=== PATIENT | female | born 1985 | race African-American/Black ===

== ENCOUNTER 2019-02-16 13:56 | Inpatient (IN) ==
[2019-02-16] MEDS ORDERED: PHENOBARBITAL IV PRN (15:53)
[2019-02-16] MEDS ORDERED: SENOKOT PO PRN (15:53)
[2019-02-16] MEDS ORDERED: TUBERSOL ID ONE (15:53)
[2019-02-16] MEDS ORDERED: NICOTINE GUM BUCCAL PRN (15:53)
[2019-02-16] MEDS ORDERED: MAALOX PLUS LIQUID PO PRN (15:53)
[2019-02-16] MEDS ORDERED: D5W 1,000 ML IV PRN (15:53)
[2019-02-16] MEDS ORDERED: IMODIUM PO PRN ×2 (15:53)
[2019-02-16] MEDS ORDERED: DESYREL PO PRN (15:53)
[2019-02-16] MEDS ORDERED: ZOFRAN IM PRN (15:53)
[2019-02-16] MEDS ORDERED: TYLENOL PO PRN (15:53)
[2019-02-16] MEDS ORDERED: ZOFRAN IV PRN (15:53)
[2019-02-16] MEDS ORDERED: DULCOLAX PR PRN (15:53)
[2019-02-16] MEDS ORDERED: SUBOXONE 2 MG/0.5 MG FILM SL SCH (16:00)
[2019-02-16] MEDS ORDERED: BENTYL PO PRN (16:00)
[2019-02-16] MEDS ORDERED: ATARAX PO PRN (16:00)
[2019-02-16] MEDS: NICODERM PATCH TD PRN (17:00)
[2019-02-16 17:19] LABS: AMYLASE 75 U/L (20-200); LIPASE 23 U/L (13-60)
[2019-02-16 19:29] LABS: URINE SOURCE CLEAN CATCH
[2019-02-16] MEDS: VALTREX PO SCH (20:34)
[2019-02-16] MEDS: LIBRIUM PO PRN (20:34)
[2019-02-16 20:59] LABS: BILIRUBIN URINE NEGATIVE (NEGATIVE); BLOOD URINE NEGATIVE (NEGATIVE); GLUCOSE URINE NEGATIVE (NEGATIVE); KETONE URINE NEGATIVE (NEGATIVE); LEUKOCYTES URINE TRACE (NEGATIVE); NITRITE URINE NEGATIVE (NEGATIVE); PROTEIN URINE NEGATIVE (NEGATIVE); UROBILINOGEN URINE NORMAL
[2019-02-16 21:00] LABS: CLARITY CLEAR (CLEAR); COLOR YELLOW
[2019-02-16 21:08] LABS: URINE BACTERIA 1+ /HFP; URINE EPITHELIAL CELLS <10 /HPF (<10); URINE WBC <10 /HPF (<10); URINE YEAST NONE SEEN /HPF
[2019-02-16 21:09] LABS: URINE CAST NONE SEEN /LPF; URINE CRYSTAL NONE SEEN /HPF
[2019-02-16 21:37] LABS: UR BENZODIAZEPIN QUAL PRESUMPTIVE POSITIVE (NONE DETECT); UR CANNABINOIDS QUAL PRESUMPTIVE POSITIVE (NONE DETECT); UR OXYCODONE QUAL PRESUMPTIVE POSITIVE (NONE DETECT)
[2019-02-16 21:38] LABS: UR AMPHETAMINES QUAL NONE DETECTED (NONE DETECT); UR BARBITUATES QUAL NONE DETECTED (NONE DETECT); UR COCAINE QUAL NONE DETECTED (NONE DETECT); UR METHADONE QUAL NONE DETECTED (NONE DETECT); UR METHAMPHETAMINE QUAL NONE DETECTED (NONE DETECT); UR OPIATES QUAL NONE DETECTED (NONE DETECT); UR PCP QUAL NONE DETECTED (NONE DETECT); UR PROPOXYPHENE QUAL NONE DETECTED (NONE DETECT); UR TCA QUAL NONE DETECTED (NONE DETECT)
[2019-02-16] MEDS: ATARAX PO PRN (22:30)
[2019-02-16] MEDS: SEROQUEL PO PRN (22:32)
[2019-02-17] MEDS: PROTONIX PO SCH ×2 (05:50→07:26)
[2019-02-17] MEDS: FOLIC ACID PO SCH (08:01)
[2019-02-17] MEDS: VITAMIN B-1 PO SCH (08:01)
[2019-02-17] MEDS: ROBAXIN PO PRN ×3 (08:01→23:43)
[2019-02-17] MEDS: THERA M PLUS PO SCH (08:01)
[2019-02-17] MEDS: VALTREX PO SCH ×2 (08:02→20:25)
[2019-02-17] MEDS: LIBRIUM PO SCH ×3 (08:29→20:26)
[2019-02-17] MEDS: MOTRIN PO PRN ×2 (14:42→22:25)
[2019-02-17] MEDS: ATARAX PO PRN ×2 (14:42→20:32)
--- NOTE | 2019-02-17 18:34 | PROGRESS NOTE ---
DATE: 02/17/2019 SUBJECTIVE: Patient notes is feeling a lot better. States that she does not want to be on Suboxone. She wants to go home off of everything. In fact does not even want to take Suboxone while she is in the hospital. PHYSICAL: Vital Signs: Reviewed, temperature 98 degrees, pulse 72, respiratory 18, BP 118/55. General: Patient is in no current respiratory distress, pleasant to talk with. HEENT: Normocephalic. Neck: Supple. CV: Regular rate. Chest: Clear. Abdomen: Soft. Extremities: Moves all extremities. ASSESSMENT: 1. Nausea, vomiting. 2. Abdominal pain. 3. Myalgias. 4. Paresthesias. 5. Paroxysmal sweating. 6. Opiate abuse withdrawal and stabilization due to [id number] [*]. PLAN: We will continue patient in hospital, will stop her Suboxone, switch to Librium and will continue to follow. Will continue counseling, further orders as needed. cc: Mariano Gonzalez MD
[2019-02-17] MEDS: NICODERM PATCH TD PRN (20:32)
[2019-02-17] MEDS: SEROQUEL PO PRN (22:23)
--- NOTE | 2019-02-17 22:31 | HISTORY AND PHYSICAL ---
CHIEF COMPLAINT: Nausea and vomiting. HISTORY OF PRESENT ILLNESS: The patient is a 33-year-old female who presented to [facility] secondary to nausea, vomiting, abdominal pain and myalgias. States that she had been clean for quite some time. She does have a known history of opiate use and abuse. Her cousin talked her into trying Tianaas that are [id number] and since then she has been abusing taking several pills a day at a couple 100 dollars a day. SOCIAL HISTORY: Patient is single. She is unemployed. Lives at home in [place]. PAST MEDICAL HISTORY: History of seizures, history of polysubstance use and abuse. MEDICATIONS: Valtrex 500 twice daily. ALLERGIES: No known drug allergies. REVIEW OF SYSTEMS: CINA score is elevated secondary to nausea, vomiting, abdominal pain, myalgias. Denies any fevers, denies cough, congestion or other upper respiratory type symptoms. Denies any dysuria, frequency, or urgency. Denies hesitancy, polyuria or polydipsia. SUBSTANCE ABUSE HISTORY: The patient has a long history of substance abuse. She was treated in 2010 at [facility] for 2 weeks, treated in 2014 at [facility] where she stayed for 8 months and weaned off. She had been sober for the past 2 years. Started marijuana at 12, currently smokes 3 to 4 times a week. Started depressants at age 23. She is currently up to 10 mg a day. Started opiates at age 17. Has a long history of use and abuse. She had been sober for 8 months ago until she started Tianaa, currently taking 150 mg of Tianaa a day. Started using OxyContin at up to 150 mg a day to get off of Tianaa. Started nicotine, currently smokes pack a day. FAMILY HISTORY: Noncontributory. PHYSICAL EXAMINATION: VITAL SIGNS: Reviewed and stable. She is awake, alert. She is in no current respiratory distress. Pleasant to talk with. HEENT: Normocephalic, atraumatic. PERRL. NECK: Supple. No JVD. CARDIOVASCULAR: Regular rate. No murmurs. CHEST: Clear, nonlabored. ABDOMEN: Soft, nondistended. EXTREMITIES: Moves all extremities. NEUROLOGIC: No focal changes. SKIN: Warm, dry. No rash. ASSESSMENT: 1. Nausea, vomiting, abdominal pain. 2. Myalgias. 3. Paresthesias. 4. Paroxysmal sweating. 5. Opiate abuse, withdrawal and admit for stabilization. 6. Chronic tobacco abuse. 7. Benzodiazepine abuse. 8. Bipolar depression. PLAN: We will continue patient in the hospital. Continue counseling. We will place her on Librium and possibly Suboxone to help wean off of her current medications. Further orders as needed. cc: Mariano Gonzalez MD
[2019-02-17] MEDS: SINEMET 25/100 PO PRN (23:57)
[2019-02-18] MEDS: LIBRIUM PO SCH ×5 (01:35→21:04)
[2019-02-18] MEDS: PROTONIX PO SCH (06:16)
[2019-02-18] MEDS: ATARAX PO PRN ×3 (06:21→21:13)
[2019-02-18] MEDS: VALTREX PO SCH ×2 (07:59→21:05)
[2019-02-18] MEDS: VITAMIN B-1 PO SCH (07:59)
[2019-02-18] MEDS: FOLIC ACID PO SCH (07:59)
[2019-02-18] MEDS: THERA M PLUS PO SCH (07:59)
[2019-02-18] MEDS: ZOFRAN ODT PO PRN ×2 (13:25→18:14)
[2019-02-18] MEDS: SINEMET 25/100 PO PRN ×2 (13:25→21:04)
[2019-02-18] MEDS: NICODERM PATCH TD PRN (14:57)
[2019-02-18] MEDS: ROBAXIN PO PRN (21:04)
[2019-02-18] MEDS: MOTRIN PO PRN (21:04)
[2019-02-18] MEDS: SEROQUEL PO PRN (21:04)
[2019-02-19] MEDS: LIBRIUM PO PRN (01:03)
[2019-02-19] MEDS: LIBRIUM PO SCH ×3 (02:23→07:48)
[2019-02-19] MEDS: ATARAX PO PRN ×2 (02:46→09:02)
[2019-02-19] MEDS: PROTONIX PO SCH (06:16)
[2019-02-19] MEDS: ROBAXIN PO PRN (07:49)
[2019-02-19] MEDS: FOLIC ACID PO SCH (08:02)
[2019-02-19] MEDS: VALTREX PO SCH (08:02)
[2019-02-19] MEDS: VITAMIN B-1 PO SCH (08:02)
[2019-02-19] MEDS: THERA M PLUS PO SCH (08:02)
--- NOTE | 2019-02-19 08:38 | PROGRESS NOTE ---
DATE: 02/18/2019 SUBJECTIVE: The patient notes that she is feeling tremendously better. Her myalgias have improved well. PHYSICAL EXAMINATION: Vital Signs: Reviewed. Temperature 98 degrees, pulse 73, respiratory 20, BP 133/68. General: The patient is awake, alert, currently in no distress. HEENT: Normocephalic, atraumatic. KAYLA. Neck: Supple. No JVD. CARDIOVASCULAR: Regular rate. Chest: Clear. Abdomen: Soft. Extremities: Moves all extremities. Neurologic: No changes. ASSESSMENT: 1. Nausea. 2. Abdominal pain. 3. Myalgias. 4. Paresthesias. 5. Opiate abuse withdrawal and stabilization. PLAN: We will continue Librium taper. We will continue to encourage medications as therapy, i.e., naltrexone. Further orders as needed. Hopefully, home over the next 1 or 2 days. cc: Mariano Gonzalez MD
[2019-02-19] MEDS ORDERED: LIBRIUM PO SCH (09:00)
[2019-02-19 09:51] VITALS: BP 124/63
--- NOTE | 2019-02-20 20:57 | DISCHARGE SUMMARY ---
ADMISSION DATE: 02/16/2019 DISCHARGE DATE: 02/19/2019 DISCHARGE DIAGNOSES: 1. Nausea and vomiting. 2. Abdominal pain. 3. Myalgias. 4. Paresthesias. 5. Paroxysmal sweating. 6. Opiate abuse, withdrawal, and stabilization. 7. Chronic anxiety, depression. 8. History of seizures. CONSULTATIONS: None. PROCEDURES: None. BRIEF HOSPITAL COURSE: Patient is a 33-year-old female who presented to [facility] secondary to nausea, vomiting, abdominal pain, myalgias. States that she has a long history of substance abuse. In fact, has actually been clean for the past 2 years. She initially got clean by taking Suboxone and weaned off Suboxone. A friend offered her some Tianaa and she started taking that. The withdrawals have become so severe that she has actually been taking oxycodone to try and alleviate some of the withdrawal symptoms. The patient was admitted to the hospital, treated in the usual fashion, placed on high dose Librium taper. She continued to taper down over the next several days. Counseling was performed each day by myself. DISPOSITION: On discharge, patient is awake, alert. She is in no distress. All of her withdrawal symptoms have improved. In fact, she states that she is feeling back to normal. We will discharge her home. Discussed with her the use of naltrexone to take as a medication assisted therapy to attempt to prevent use and abuse in the future. We will continue Librium for the next 3 days and did write a prescription for Atarax as needed. cc: Mariano Gonzalez MD
== END 2019-02-19 10:10 | disposition home or self-care (01) | DRG 897 ==
LOC: P.MEDSURG 15:11
PROVIDERS: ADMIT Family Medicine; ATTEND Family Medicine
CPT/HCPCS: 80104; 80301; 80305; 80307; 80320; 81001; 82055; 82150; 83690; 84703; 86580; A9270; G0431; G0434; G0477; G0480; G6040; S4995